=== PATIENT | female | born 1990 | race American Indian/Alaskan Native ===

== ENCOUNTER 2016-09-04 19:52 | Emergency (ER) | payer SELFPAY ==
[2016-09-04 20:23] VITALS: BP 112/73
[2016-09-04 21:04] LABS: Basophils % (Auto) 0.5 % (0.0-1.8); Eosinophils % (Auto) 0.9 % (0.0-4.3); Hematocrit 36.7 % (30.3-42.9); Hemoglobin 11.9 gm/dl (10.1-14.3); Mean Corpuscular HGB Conc 33 % (30-34); Mean Corpuscular Hemoglobin 28 pg (28-32); Mean Corpuscular Volume 87 fl (79-97); Platelet Count 249 K/mm3 (140-440); Red Blood Count 4.21 M/mm3 (3.65-5.03); Red Cell Distribution Width 13.3 % (13.2-15.2); White Blood Count 8.2 K/mm3 (4.5-11.0)
[2016-09-04 21:55] LABS: Bilirubin,Urine NEG (Negative); Blood,Urine LG (Negative); Ketones,Urine 80 mg/dL (Negative); Leukocyte Esterase,Urine MOD (Negative); Mucus,Urine 3+ /HPF; Nitrite,Urine NEG (Negative)
--- NOTE | 2016-09-04 22:43 | Ultrasound Report ---
FINAL REPORT PROCEDURE: US OB TRANSVAGINAL TECHNIQUE: Real-time transvaginal sonography of the uterus, placenta, amniotic fluid, adnexa, and fetus was performed with image documentation. Measurements were obtained to determine age/size. M-mode Doppler was used to document heartbeat. CPT 16389 HISTORY: VAG BLEEDING / COMPARISON: No prior studies are available for comparison. FINDINGS: CRL: 70.7mm, which corresponds to a gestational age of: 13weeks, 2 days. Yolk Sac: Normal. Embryonic Cardiac Activity: 142 beats per minute Gestational Sac: Normal. There is a subchorionic hematoma measuring 12 x 8 x 13 millimeters. Right Ovary: Not seen Left Ovary: Normal. Estimated delivery date: 03/10/2017 Comment: Complete anatomic survey at 18-20 weeks suggested. There are multiple uterine fibroids. IMPRESSION: 1. Single living intrauterine gestation at approximately 13 weeks and 2 days 2. EDC by US 03/10/2017.
--- NOTE | 2016-09-04 22:43 | Ultrasound Report ---
FINAL REPORT PROCEDURE: US OB LESS THAN 14 WEEKS FETUS TECHNIQUE: Real-time TRANSABDOMINAL sonography of the uterus, placenta, amniotic fluid, adnexa, and fetus was performed with image documentation. Measurements were obtained to determine age/size. M-mode Doppler was used to document heartbeat. HISTORY: VAG BLEEDING / COMPARISON: No prior studies are available for comparison. FINDINGS: CRL: 70.7mm, which corresponds to a gestational age of: 13weeks, 2 days. Yolk Sac: Normal. Embryonic Cardiac Activity: 142 beats per minute Gestational Sac: Normal. There is a subchorionic hematoma measuring 12 x 8 x 13 millimeters. Right Ovary: Not seen Left Ovary: Normal. Estimated delivery date: 03/10/2017 Comment: Complete anatomic survey at 18-20 weeks suggested. There are multiple uterine fibroids. IMPRESSION: 1. Single living intrauterine gestation at approximately 13 weeks and 2 days 2. EDC by US 03/10/2017.
--- NOTE | 2016-09-06 01:01 | ED Elopement Review ---
ED Pt Elopement review - Results review Lab results: Laboratory Tests 09/04/16 09/04/16 09/04/16 20:42 20:42 20:42 WBC 8.2 RBC 4.21 Hgb 11.9 Hct 36.7 MCV 87 MCH 28 MCHC 33 RDW 13.3 Plt Count 249 Lymph % (Auto) 17.2 [place] % (Auto) 4.6 Eos % (Auto) 0.9 Baso % (Auto) 0.5 Lymph # 1.4 [place] # 0.4 Eos # 0.1 Baso # 0.0 Seg Neutrophils % 76.8 H Seg Neutrophils # 6.3 HCG, Quant 51051 H Urine Color Urine Turbidity Urine pH Ur Specific [place] Urine Protein Urine Glucose (UA) Urine Ketones Urine Blood Urine Nitrite Urine Bilirubin Urine Urobilinogen Ur Leukocyte Esterase Urine WBC (Auto) Urine RBC (Auto) U Epithel Cells (Auto) Urine Mucus Blood Type O POSITIVE Antibody Screen TNR ROMERO Antibody Screen Negative 09/04/16 Unknown WBC RBC Hgb Hct MCV MCH MCHC RDW Plt Count Lymph % (Auto) [place] % (Auto) Eos % (Auto) Baso % (Auto) Lymph # [place] # Eos # Baso # Seg Neutrophils % Seg Neutrophils # HCG, Quant Urine Color [place] Urine Turbidity Clear Urine pH 5.0 Ur Specific [place] 1.031 H Urine Protein 100 mg/dl Urine Glucose (UA) Neg Urine Ketones 80 Urine Blood Lg Urine Nitrite Neg Urine Bilirubin Neg Urine Urobilinogen 4.0 Ur Leukocyte Esterase Mod Urine WBC (Auto) 6.0 Urine RBC (Auto) 4.0 U Epithel Cells (Auto) 10.0 Urine Mucus 3+ Blood Type Antibody Screen ROMERO Antibody Screen - Call Back decision Pt Call Back Decision: Pt to F/U with PMD
== END 2016-09-05 01:33 | disposition left against medical advice (07) ==
LOC: ED 19:52
DX: O20.9 Hemorrhage in early pregnancy, unspecified (principal); Z3A.13 13 weeks gestation of pregnancy
CPT/HCPCS: 36415; 76801; 76817; 81001; 84702; 85025; 86850; 86900; 86901